=== PATIENT | female | born 1995 | race African-American/Black ===

== ENCOUNTER 2019-07-16 10:10 | Emergency (ER) | payer MEDICAID ==
[~2019-07-16] VITALS: Ht 157.5 cm; Wt 55.0 kg
[2019-07-16] MEDS ORDERED: SODIUM CHLORIDE 0.9% 1,000 ML IV ONE (11:35)
[2019-07-16] MEDS ORDERED: KETOROLAC 30MG/ML VIAL IV STA (11:35)
[2019-07-16 11:52] LABS: CHLORIDE 104 mEq/L (98-107)
[2019-07-16 11:54] LABS: BASOPHILS % 0.2 % (0.0-2.0); HEMATOCRIT. 39.6 % (36.0-48.0); HEMOGLOBIN. 13.7 g/dL (12.0-16.0); LYMPHOCYTES % 12.5 % (20.0-50.0); MEAN CORPUSCULAR HEMOGLOBIN 29.4 pg (28.0-32.0); MEAN CORPUSCULAR VOLUME 84.9 fL (81.0-99.0); MEAN PLATELET VOLUME 8.2 fl (7.4-10.4); MONOCYTES % 9.5 % (2.0-8.0); NEUTROPHILS % 77.8 % (40.0-76.0); PLATELET 278 x1000/uL (130-400); RED BLOOD CELL COUNT 4.66 mill/uL (4.2-5.4); RED CELL DISTRIBUTION WIDTH 12.5 % (11.6-14.6)
[2019-07-16 11:55] LABS: INR 1.1; PROTHROMBIN TIME 11.4 sec (9.6-11.0)
[2019-07-16 12:16] LABS: HCG SCREEN NEGATIVE
[2019-07-16 12:17] LABS: CLARITY URINE CLEAR (CLEAR); COLOR URINE YELLOW (YELLOW); KETONES URINE NEGATIVE (NEGATIVE); LEUKOCYTE ESTERASE URINE NEGATIVE (NEGATIVE); NITRITE URINE NEGATIVE (NEGATIVE); OCCULT BLOOD URINE NEGATIVE (NEGATIVE); PROTEIN URINE NEGATIVE (NEGATIVE); SPECIFIC GRAVITY URINE 1.019 (1.005-1.030); UROBILINOGEN URINE 0.2 E.U./dL (0.2-1.0)
[2019-07-16] MEDS ORDERED: ACETAMINOPHEN 325MG TABLET PO ONE (14:30)
[2019-07-16 14:46] VITALS: BP 117/71
== END 2019-07-16 14:52 | disposition home or self-care (01) ==
LOC: ER 10:28
DX: B34.9 Viral infection, unspecified (principal); R50.81 Fever presenting with conditions classified elsewhere; R51 Headache; R10.9 Unspecified abdominal pain
CPT/HCPCS: 36415; 80053; 81003; 81025; 84703; 85025; 85610; 87804; 99283; J1885; J7030

== ENCOUNTER 2019-09-04 11:50 | Emergency (ER) | payer MEDICAID, OTHER ==
[~2019-09-04] VITALS: Ht 157.5 cm; Wt 53.0 kg
[2019-09-04] MEDS ORDERED: PHENAZOPYRIDINE HCL 100MG TABLET PO ONE (15:45)
[2019-09-04 17:13] LABS: CLARITY URINE CLOUDY (CLEAR); COLOR URINE YELLOW (YELLOW); KETONES URINE NEGATIVE (NEGATIVE); LEUKOCYTE ESTERASE URINE 2+ (NEGATIVE); NITRITE URINE POSITIVE (NEGATIVE); OCCULT BLOOD URINE NEGATIVE (NEGATIVE); PROTEIN URINE NEGATIVE (NEGATIVE); SPECIFIC GRAVITY URINE 1.014 (1.005-1.030); UROBILINOGEN URINE 0.2 E.U./dL (0.2-1.0)
[2019-09-04 17:45] VITALS: BP 118/65
== END 2019-09-04 17:48 | disposition home or self-care (01) ==
LOC: ER 11:50
DX: N30.00 Acute cystitis without hematuria (principal)
CPT/HCPCS: 81003; 87077; 87086; 87186; 99283; C1893; Z7610